=== PATIENT | male | born 1950 | race Caucasian/White ===

== ENCOUNTER 2023-10-20 08:58 | Outpatient (CLI) | payer OTHER | END 2023-10-20 09:07 | disposition home or self-care (01) | LOC: SONOGRAMA 08:58 | PROVIDERS: ATTEND Urology | DX: N40.0 Benign prostatic hyperplasia without lower urinary tract symptoms (principal); R97.20 Elevated prostate specific antigen [PSA]; C61 Malignant neoplasm of prostate; N31.0 Uninhibited neuropathic bladder, not elsewhere classified ==

== ENCOUNTER 2025-09-09 10:19 | Outpatient (CLI) | payer OTHER | END 2025-09-09 10:20 | disposition home or self-care (01) | LOC: SONOGRAMA 10:19 | PROVIDERS: ATTEND Urology | DX: C61 Malignant neoplasm of prostate (principal); R33.9 Retention of urine, unspecified; R31.1 Benign essential microscopic hematuria ==